=== PATIENT | male | born 1985 | race Caucasian/White ===

== ENCOUNTER 2017-01-13 09:50 | Emergency (ER) | payer OTHER ==
[~2017-01-13] VITALS: Ht 177.8 cm; Wt 127.3 kg
[2017-01-13 09:54] VITALS: BP 134/85
[2017-01-13] MEDS ORDERED: FAMOTIDINE 20 MG TABLET ONE (10:46)
[2017-01-13] MEDS ORDERED: FAMOTIDINE 20 MG TABLET PO ONE (11:00)
== END 2017-01-13 11:03 ==
LOC: ED 10:56
DX: L23.7 Allergic contact dermatitis due to plants, except food (principal)
CPT/HCPCS: 99283; Q0177

== ENCOUNTER → 2017-10-07 | Outpatient (CLI) | payer OTHER | END | disposition home or self-care (01) | LOC: CFH 08:10 | PROVIDERS: ATTEND Family Medicine | DX: R10.11 Right upper quadrant pain (principal) | CPT/HCPCS: 76705 ==